=== PATIENT | male | born 1960 | race African-American/Black ===

== ENCOUNTER 2018-11-05 13:41 | Inpatient (IN) | payer MEDICARE, MEDICAID ==
[~2018-11-05] VITALS: Ht 180.3 cm; Wt 86.2 kg
[2018-11-05] MEDS ORDERED: LOSA100T31 PO (14:41)
[2018-11-05] MEDS ORDERED: HYDR-4077 PO (14:41)
[2018-11-05] MEDS ORDERED: METO75TA PO (14:41)
[2018-11-05] MEDS ORDERED: OXYC-133 PO (14:41)
[2018-11-05] MEDS ORDERED: AMLO10TA7 PO (14:41)
[2018-11-05] MEDS ORDERED: ASPI81TA31 PO (14:41)
[2018-11-05] MEDS ORDERED: CLOP75TA33 PO (14:41)
[2018-11-05] MEDS ORDERED: ATOR80TA PO (14:41)
[2018-11-05] MEDS ORDERED: OXYCODONE/APAP 5-325 MG TABLET PO PRN (16:15)
[2018-11-05] MEDS: hydrALAZINE HCL 50 MG TABLET PO SCH (17:11)
[2018-11-05] MEDS: BISACODYL 5 MG TABLET.DR PO PRN (17:56)
[2018-11-05] MEDS: ACETAMINOPHEN 325 MG TABLET PO PRN (17:56)
--- NOTE | 2018-11-05 18:00 | NUR ---
Patient came around 140pm via ambulance with 2 EMT in stable condition. DX: Right hip arthroplasty. not in distress. Ambulate one assist with during urination noted. On regular diet. Allergic to codeine.change dressing with right hip incision with balbina. Picture taken. As per patient, no open wound in sacrum. Having hard time to turn. will endorse to next shift for morning check prior therapy. On pain management. Temp 99.5, complaint of incision pain. tylenol 650mg [id number] given around 6pm. MD Cai and WILLIS Bates aware. will continue monitor
[2018-11-05 18:53] VITALS: BP 142/60
--- NOTE | 2018-11-05 19:00 | NUR ---
Awake during initial rounds. Denies any pain but claiming he's feeling slightly nauseated. Ice chips offered refused. Assisted to the BR with FWW on ambulation with minimal assist. Voided good. Maintained proper positioning during ambulation. Safety measure and fall precaution maintained. Continue care as planned.
[2018-11-05 19:18] VITALS: BP 154/75
[2018-11-05] MEDS: ATORVASTATIN 40 MG TABLET PO SCH (20:35)
[2018-11-05] MEDS: METOPROLOL TARTRATE 50 MG TABLET PO SCH (20:36)
[2018-11-05] MEDS: LOSARTAN POTASSIUM 50 MG TABLET PO SCH (20:36)
[2018-11-05] MEDS ORDERED: Medication Not On Formulary EA (Atorvastatin Calcium (Lipitor) 80 MG) PO SCH (21:00)
[2018-11-05] MEDS ORDERED: Medication Not On Formulary EA (Losartan Potassium 100 MG) PO SCH (21:00)
[2018-11-06 06:08] VITALS: BP 138/63
--- NOTE | 2018-11-06 06:32 | NUR ---
Shift End Report: Vs stable. Slept in between care. Requires assistance/hand held assist in OOB. Uses urinal on urination, voiding good. Complaint of tolerable pain, refusing pain meds offered. All needs attended and met. No significant event reported all night. Continue current rehab plan of care.
--- NOTE | 2018-11-06 07:30 | NUR ---
Patient noted resting with eyes closed at this time, no facial cues of pain noted, no signs of distress, call light noted in reach, bed locked and in lowest position, no needs verbalized at this time
[2018-11-06] MEDS: METOPROLOL TARTRATE 50 MG TABLET PO SCH ×3 (08:26→21:00)
[2018-11-06] MEDS: AMLODIPINE 10 MG TABLET PO SCH (08:26)
[2018-11-06] MEDS: hydrALAZINE HCL 50 MG TABLET PO SCH ×3 (08:26→17:05)
[2018-11-06] MEDS: CLOPIDOGREL 75 MG TABLET PO SCH (08:26)
[2018-11-06] MEDS: ASPIRIN 81 MG TAB.CHEW PO SCH (08:27)
[2018-11-06] MEDS: ACETAMINOPHEN 325 MG TABLET PO PRN (08:27)
[2018-11-06] MEDS: NICOTINE 7 MG/24HR PATCH TD SCH ×2 (08:27→08:33)
[2018-11-06 09:00] VITALS: BP 130/77
--- NOTE | 2018-11-06 18:45 | NUR ---
Patient given tylenol for 99.4 oral temperature at 1000, refused all pain medication, patient given ice packs periodically this shift, no changes this shift
--- NOTE | 2018-11-06 19:00 | NUR ---
Sleeping during initial rounds but easily arouseable. at bedside. Denies nay pain/discomforts at this time. Safety measure and fall precaution maintained. Continue care as planned.
[2018-11-06 19:14] VITALS: BP 118/68
[2018-11-06 19:23] VITALS: BP 133/64
[2018-11-06] MEDS: ATORVASTATIN 40 MG TABLET PO SCH ×2 (20:34→21:00)
[2018-11-06] MEDS: LOSARTAN POTASSIUM 50 MG TABLET PO SCH ×2 (20:34→21:00)
[2018-11-06] MEDS: BISACODYL 5 MG TABLET.DR PO PRN (20:35)
--- NOTE | 2018-11-06 20:43 | NUR ---
Patient complaining that he's exhibiting SOB and sweating. O2 sat checked 100% RA. Covered with 5 blankets, PJ bottom and a robe. Informed patient that he's thickly covered that's why he has a low grade fever and made him sweat as well and asked him if I can removed some of it. Offered Ice water earlier and tolerating well. Presented that he has 2 small BM this morning and he had no BM prior to admission, offered Dulcolax and agreed. Patient claiming that he's not taking same medications that he's taking from home that the nurse that admitted him yesterday took all his home medications away. Reviewed current medications due for tonight and agreed that he's taking those.Patient insisting that he wants to have all his home meds and refused to take meds due. Instructed patient that he has the right to refused treatment if he's not comfortable or conform the way he's expecting. Patients wants to call 911 and starts throwing things within his reach.
--- NOTE | 2018-11-06 20:46 | NUR ---
Elena JONES was called. Patient very upset, throwing everything he can grab on at the bedside. Screaming at the top of his voice. traffic control supervisor Poli people from ER, [facility] and Security came in rescue.
--- NOTE | 2018-11-06 23:41 | NUR ---
[place] patient gagging loud, refused any medications. Ice chips offered. Will monitor.
--- NOTE | 2018-11-07 00:10 | NUR ---
Obtained new order from Wesly Harrison NP Zofran 4 mg for N/V. Mushroom Picker notified.
[2018-11-07] MEDS ORDERED: ONDANSETRON ODT 4 MG TAB.RAPDIS ONE (00:26)
[2018-11-07] MEDS: ONDANSETRON ODT 4 MG TAB.RAPDIS SL PRN ×2 (00:26→20:04)
--- NOTE | 2018-11-07 00:27 | NUR ---
Medicated with Zofran 4 mg 1tab SL as needed for N/V as ordered. Will monitor.
--- NOTE | 2018-11-07 01:30 | NUR ---
Sleeping with HOB elevated during rounds. No s/s of respiratory distress noted.
--- NOTE | 2018-11-07 05:40 | NUR ---
Shift End Report: VS stable. Calm and cooperative now. Denies any nausea and vomiting. Asked for jello, ice chips and orange juice, given. Still complaining of abdominal discomforts. Denies urge to defecate or passing gas. Able to use urinal by himself. Voiding good. Continue current rehab plan of care..
[2018-11-07 06:03] VITALS: BP 138/75
--- NOTE | 2018-11-07 07:59 | NUR ---
Patient noted ambulating to restroom at this time, refuses pain medication but complaints of mild pain 07/11, no signs of distress, took all AM medications, call light noted in reach, all needs met
[2018-11-07] MEDS: CLOPIDOGREL 75 MG TABLET PO SCH (08:41)
[2018-11-07] MEDS: ASPIRIN 81 MG TAB.CHEW PO SCH (08:41)
[2018-11-07] MEDS: hydrALAZINE HCL 50 MG TABLET PO SCH ×3 (08:42→17:09)
[2018-11-07] MEDS: METOPROLOL TARTRATE 50 MG TABLET PO SCH ×2 (08:42→21:16)
[2018-11-07] MEDS: AMLODIPINE 10 MG TABLET PO SCH (08:43)
[2018-11-07 09:00] VITALS: BP 117/63
[2018-11-07] MEDS ORDERED: NICOTINE 7 MG/24HR PATCH TD PRN (09:00)
[2018-11-07] MEDS ORDERED: MAG HYDROX/AL HYDROX/SIMETH 30 ML LIQUID UDC PO PRN (17:30)
[2018-11-07 18:32] VITALS: BP 118/70
--- NOTE | 2018-11-07 19:30 | NUR ---
PATIENT RECEIVED IN BED, WITH FAMILY AT BEDSIDE. ALERT AND ORIENTED X 4. PATIENT DISTRESSED ABOUT STOMACH DISCOMFORT. VITAL SIGNS TAKEN. WNL. ABDOMINAL SOUNDS HEARD IN ALL 4 QUADRANTS. WILL RELAY TO MD CHUCK SPLITTER. NO C/O SOB. CHOCOLATE PUDDING GIVEN FOR SNACK. ICE PACK GIVEN TO RELIEVE RIGHT LEG DISCOMFORT. SIDE RAILS UP BILATERALLY FOR SAFETY. CALL LIGHT AND FREQUENTLY USED ITEMS WITHIN REACH. WILL CONTINUE TO MONITOR.
[2018-11-07 20:00] VITALS: BP 118/65
--- NOTE | 2018-11-07 20:36 | NUR ---
PATIENT SPOKE WITH [facility] JAMAAL REGARDING STOMACH DISCOMFORT. [facility] ORDER ABDOMINAL XRAY ROUTINE. WILL CONTINUE TO MONITOR.
[2018-11-07 21:16] VITALS: BP 118/65
[2018-11-07] MEDS: LOSARTAN POTASSIUM 50 MG TABLET PO SCH (21:16)
[2018-11-07] MEDS: ATORVASTATIN 40 MG TABLET PO SCH (21:16)
--- NOTE | 2018-11-07 22:30 | NUR ---
ABDOMINAL X-RAY SHOWS POSSIBLE GALLSTONES IN UPPER RIGHT QUADRANT. WILLIS HINTON NOTIFIED. US GALLSTONES ORDERED. WILL CONTINUE TO MONITOR.
--- NOTE | 2018-11-08 01:58 | NUR ---
PATIENT NOTED TO BE AGITATED AT 0030 ABOUT NOT HAVING THE RESULTS OF THE GALLBLADDER ULTRASOUND. EXPLAINED TO PATIENT THAT THE RESULTS HAD NOT BEEN READ YET. PATIENT COMPLAINT OF 12/10 PAIN IN ABDOMEN. OFFERED TO GIVE PATIENT PAIN MEDICATION, BUT PATIENT REFUSED. PATIENT DID NOT WANT THE ORDERED PERCOCET BECAUSE HE BELIEVES HIMSELF TO HAVE AN ALLERGY TO IT, AND DID NOT BELIEVE THE TYLENOL WOULD BE STRONG ENOUGH FOR THE TYPE OF PAIN THAT HE WAS HAVING. THIS NURSE REASSURED PATIENT THAT THE RESULTS WOULD BE HERE SOON, AND THAT WE WOULD HAVE A BETTER IDEA WHAT IS GOING ON IN HIS ABDOMEN THEN. 0100 PATIENT CONTINUED TO BE AGITATED THAT THE RESULTS ARE NOT READY YET, AND THAT HE WANTED TO LEAVE TO FIND "BETTER CARE." PATIENT STILL COMPLAINING OF PAIN IN ABDOMEN. AGAIN PAIN MEDICATION OFFERED, AND PATIENT REFUSED. MD INNER TUBE CUTTER NOTIFIED THAT PATIENT SITUATION AND OF HIS WANT TO LEAVE. MD AWARE OF PATIENT WANT TO LEAVE. THIS NURSE CALLED THE FAMILY MEMBERS FOR THE PATIENT TRYING TO INFORM THEM THAT HE WOULD LIKE TO LEAVE. THE DAUGHTER MOISES AND THE OWEN WERE CONTACTED, AND THIS NURSE SPOKE TO THE AND INFORMED HER THAT HE WOULD LIKE TO LEAVE. DOCK BUILDER CONTACTED AND ASKED TO ACCOMPANY THIS NURSE INTO THE PATIENTS ROOM FOR THE AMA FORM TO BE SIGNED. THE DOCK BUILDER ENTERED THE ROOM FIRST TO TRY AND TALK TO THE PATIENT ABOUT WAITING TILL MORNING TO LEAVE. PATIENT REFUSED, WANTING TO LEAVE RIGHT THEN. PATIENT STATED THAT HE WOULD "CALL 911 AND A TRAINED EMT WOULD GIVE HIM THE CARE THAT HE NEEDS." THIS NURSE APPROACHED THE PATIENT WITH AN AMA FORM FOR HIM TO SIGN, PATIENT BEGAN TO FILM THIS NURSE TRYING TO GET THE PATIENT TO SIGN FORM. PATIENT REFUSED TO SIGN THE FORM STATING THAT NO DOCTOR HAD SEEN HIM, AND THAT HE WOULD NOT SIGN UNTIL HE WAS SEEN BY A DOCTOR. THIS NURSE LEFT TO SPEAK WITH THE DOCK BUILDER, AND WHILE TALKING WITH THE NURSING DOCK BUILDER BIRDIE THE PATIENT RETRIEVED HIS WALKER AND LEFT HIS ROOM TO HAVE HIS PICK HIM UP. THIS NURSE ACCOMPANIED THE PATIENT TO THE FRONT OF THE HOSPITAL WITH SECURITY PRESENT, AND LEFT HIM IN THE FRONT WITH THE SECURITY GUARDS. DOCK BUILDER JOINED THE PATIENT AND TOOK OVER BECAUSE THE PATIENT REFUSED TO TALK TO THIS NURSE.
== END 2018-11-08 01:45 | disposition left against medical advice (07) | DRG 561 ==
PROVIDERS: ADMIT Physical Medicine & Rehabilitation Pain Medicine; ATTEND Physical Medicine & Rehabilitation Pain Medicine
DX: Z47.1 Aftercare following joint replacement surgery (principal); E78.5 Hyperlipidemia, unspecified; Z96.643 Presence of artificial hip joint, bilateral; I10 Essential (primary) hypertension; I25.10 Atherosclerotic heart disease of native coronary artery without angina pectoris; I25.2 Old myocardial infarction; R10.84 Generalized abdominal pain; R63.0 Anorexia; Z88.5 Allergy status to narcotic agent
CPT/HCPCS: 74018; 97110; 97112; 97116; 97165; 97530; 97535; A9150; Q0162